=== PATIENT | female | born 1995 | race Caucasian/White ===

== ENCOUNTER 2021-08-15 17:37 | Emergency (ER) | payer SELFPAY ==
[~2021-08-15] VITALS: Ht 167.6 cm; Wt 98.9 kg
== END 2021-08-15 18:57 | disposition home or self-care (01) ==
LOC: ER 17:40
DX: J02.9 Acute pharyngitis, unspecified (principal); F17.210 Nicotine dependence, cigarettes, uncomplicated
CPT/HCPCS: 99283